=== PATIENT | female | born 1980 | race Caucasian/White ===

== ENCOUNTER 2016-12-05 22:51 | Emergency (ER) | payer MEDICAID ==
[~2016-12-05] VITALS: Ht 160 cm; Wt 98.3 kg
[~2016-12-05 22:51] MED LIST: SPRI28TA PO
[2016-12-05 23:04] VITALS: BP 125/91; PULSE 87; RESP 18; TEMP 98.3; O2SAT 98
== END 2016-12-05 23:52 | disposition left against medical advice (07) ==
LOC: PHED 22:51
DX: R22.41 Localized swelling, mass and lump, right lower limb (principal); Z53.21 Procedure and treatment not carried out due to patient leaving prior to being seen by health care provider
CPT/HCPCS: 99281